=== PATIENT | female | born 1990 | race Caucasian/White ===

== ENCOUNTER 2017-09-26 02:20 | Emergency (ER) | payer OTHER ==
[~2017-09-26] VITALS: Ht 160 cm; Wt 63.5 kg
[2017-09-26 02:26] VITALS: BP 144/90
--- NOTE | 2017-09-26 02:32 | NUR ---
PATIENT AMBULATED TO BED 11
--- NOTE | 2017-09-26 02:35 | NUR ---
PT C/O TOOTHACHE TO LEFT SIDE OF JAW X3 DAYS. PT STATES PAIN IS 6/10 TO LEFT SIDE OF MOUTH, SHARP, NON RADIATING. PT STATES SHE BIT HER LIP, NO ACTIVE BLEEDING NOTED. NO SWELLING OR REDNESS NOTED TO LEFT SIDE OF FACE, AREA IS TENDER TO TOUCH. NO PMH, NKA
[2017-09-26 02:54] VITALS: BP 140/67
--- NOTE | 2017-09-26 02:54 | NUR ---
Patient discharged with v/s stable. Written and verbal after care instructions given and explained. Patient alert, oriented and verbalized understanding of instructions. Ambulatory with steady gait. All questions addressed prior to discharge. ID band removed. Patient advised to follow up with PMD. Rx of penicillin, motrin given. Patient educated on indication of medication including possible reaction and side effects. Opportunity to ask questions provided and answered.
== END 2017-09-26 02:54 | disposition home or self-care (01) ==
LOC: MED 02:20
DX: K04.7 Periapical abscess without sinus (principal); J45.909 Unspecified asthma, uncomplicated; F17.200 Nicotine dependence, unspecified, uncomplicated
CPT/HCPCS: 99283

== ENCOUNTER 2018-01-09 20:57 | Emergency (ER) | payer OTHER ==
[~2018-01-09] VITALS: Ht 160 cm; Wt 63.5 kg
--- NOTE | 2018-01-09 21:06 | NUR ---
Kayla alvarenga in ED - 01/09/18 at 2112 by [facility] PT.[email or web address] TO ER BED 10, REPORT GIVEN TO BANDAR CRAWFORD
[2018-01-09 21:08] VITALS: BP 133/95
--- NOTE | 2018-01-09 21:11 | NUR ---
27/F CAME IN W C/O SOB X 1 DAY. WHEEZING NOTED THROUGHOUT WITH SLIGHT ACCESSORY MUSCLE USE NOTED, ABLE TO SPEAK AT FULL LENGHT WITH NO DIFFICULTIES. 22RR, 99% ON RA. PT REPORTS SHE TOOK ALBUTEROL SEVERAL TIME TODAY WITH MINIMAL RELIEF
--- NOTE | 2018-01-09 21:13 | NUR ---
PT TAKEN TO BED 7
--- NOTE | 2018-01-09 21:13 | NUR ---
REPORT GIVEN TO BANDAR RIVAS
--- NOTE | 2018-01-09 21:18 | NUR ---
Dr. Henry evaluating patient at bedside.
[2018-01-09] MEDS ORDERED: predniSONE 20 MG TAB PO ONE (21:30)
[2018-01-09] MEDS ORDERED: ALBUTEROL SULFATE/IPRATROPIU 3 ML SOL IH ONE (21:30)
--- NOTE | 2018-01-09 21:54 | NUR ---
Respiratory Therapist at bedside for respiratory intervention.
--- NOTE | 2018-01-09 22:00 | NUR ---
BREATHIGN TREATMENT DONE, PT HANNY WELL, STATES " I FEEL BETTER". ALL LUNG SOUNDS CBTA 18RR EVEN AND UNLABORED, 99% RA.
[2018-01-09 22:05] VITALS: BP 132/85
--- NOTE | 2018-01-09 22:05 | NUR ---
Patient discharged with v/s stable. Written and verbal after care instructions given and explained. Patient alert, oriented and verbalized understanding of instructions. Ambulatory with steady gait. All questions addressed prior to discharge. ID band removed. Patient advised to follow up with PMD. Rx of COMBIVENT 103MCG HHN, PREDNISONE 50MG given. Patient educated on indication of medication including possible reaction and side effects. Opportunity to ask questions provided and answered.
== END 2018-01-09 22:05 | disposition home or self-care (01) ==
LOC: MED 20:57
DX: J45.901 Unspecified asthma with (acute) exacerbation (principal)
CPT/HCPCS: 94640; 94760; 99283; J7512; J7620

== ENCOUNTER 2019-11-11 21:51 | Emergency (ER) | payer MEDICAID, OTHER ==
[~2019-11-11] VITALS: Ht 160 cm; Wt 62.6 kg
[2019-11-11 21:56] VITALS: BP 139/75
[2019-11-11] MEDS ORDERED: KETOROLAC 30 MG/ML VIAL IVP ONE (22:15)
[2019-11-11] MEDS ORDERED: NACL 0.9% 1,000 ML IV ONE (22:15)
[2019-11-11 22:37] LABS: BASOPHILS % (AUTO) 0.4 % (0.0-2.0); EOSINOPHILS # (AUTO) 0.1 K/uL (0-0.4); EOSINOPHILS % (AUTO) 0.5 % (0.0-4.0); HEMOGLOBIN 12.7 g/dL (12.0-16.0); LYMPHOCYTES # (AUTO) 0.7 K/uL (2.5-16.5); LYMPHOCYTES % (AUTO) 6.6 % (20.5-51.1); MEAN CORPUSCULAR HEMOGLOBIN 28 pg (27-31); MEAN CORPUSCULAR HGB CONC 33 g/dL (33-37); MEAN CORPUSCULAR VOLUME 85.2 fL (80-94); MONOCYTES # (AUTO) 0.5 K/uL (0.8-1.0); MONOCYTES % (AUTO) 4.8 % (1.7-9.3); NEUTROPHILS # (AUTO) 9.6 K/uL (1.8-7.7); NEUTROPHILS % (AUTO) 87.7 % (42.2-75.2); PLATELET COUNT (AUTO) 163 K/uL (140-450); RED BLOOD CELL COUNT(AUTO) 4.46 MIL/uL (4.20-5.40); RED CELL DISTRIBUTION WIDTH 13.5 % (11.6-13.7)
[2019-11-11 22:40] LABS: APPEARANCE,URINE CLOUDY (CLEAR); BILIRUBIN,URINE NEGATIVE (NEGATIVE); BLOOD, URINE 3+ (NEGATIVE); COLOR,URINE YELLOW (YELLOW); LEUKOCYTE ESTERASE ,URINE 2+ (NEGATIVE); NITRITE, URINE POSITIVE (NEGATIVE); UGLUCOSE NEGATIVE (NEGATIVE)
[2019-11-11 22:51] LABS: HYALINE CASTS, URINE 0-10 /LPF (None Seen); RBC,URINE TOO NUMEROUS TO COUN /HPF (0-5); WBC,URINE TOO MANY TO COUNT /HPF (0-5)
[2019-11-11 22:52] LABS: ALBUMIN 3.5 g/dL (3.4-5.0); CARBON DIOXIDE 28.5 mmol/L (21-32); CREATININE 0.8 mg/dL (0.6-1.3); POTASSIUM 3.5 mmol/L (3.5-5.1); TOTAL BILIRUBIN 0.4 mg/dL (0.0-1.0)
[2019-11-11] MEDS ORDERED: cefTRIAXone 1,000 MG VIAL ONE (23:30)
[2019-11-11 23:50] VITALS: BP 139/75
== END 2019-11-11 23:50 | disposition home or self-care (01) ==
LOC: MED 21:51
DX: N39.0 Urinary tract infection, site not specified (principal); J45.909 Unspecified asthma, uncomplicated; Z91.013 Allergy to seafood
CPT/HCPCS: 36415; 74176; 80053; 81001; 81025; 85025; 87086; 87186; 96365; 96375; 99284; J0696; J1885; J7030

== ENCOUNTER 2019-12-05 21:50 | Emergency (ER) | payer SELFPAY ==
[~2019-12-05] VITALS: Ht 160 cm; Wt 64.5 kg
[2019-12-05 21:54] VITALS: BP 136/80
--- NOTE | 2019-12-05 21:57 | NUR ---
29 Y/O FEMALE PRESENTS TO THE ER WITH LEFT FLANK PAIN X 1 DAY. 03/28. DENIES DYSURIA, FREQUENCY, OR HEMATURIA. PT STATES PAIN RADIATES TO LLQ. DENIES INJURY, NAUSEA, VOMITING, DIARRHEA, BUT FEELS BLOATED. PT STATES SHE WAS SEEN HERE FOR THE SAME PROBLEM, BUT WAS RULED OUT A UTI. PT STATES SHE COMPLETED ANTIBIOTIC REGIMEN. DENIES COUGH, R/R EQUAL, AND UNLABORED. LMP 11/21/19 SIDE RAIL X1, WILL CONTINUE TO MONITOR NKDA PMH: ASTHMA
--- NOTE | 2019-12-05 21:59 | NUR ---
PT TAKEN TO BED 4
--- NOTE | 2019-12-05 22:06 | NUR ---
Dr. Henry examining patient.
[2019-12-05] MEDS ORDERED: KETOROLAC 60 MG/2 ML VIAL IM ONE (22:10)
--- NOTE | 2019-12-05 22:34 | NUR ---
PT RETURN FROM RAD
[2019-12-05 23:05] VITALS: BP 136/80
--- NOTE | 2019-12-05 23:05 | NUR ---
Patient discharged with v/s stable. Written and verbal after care instructions given and explained. Patient alert, oriented and verbalized understanding of instructions. Ambulatory with steady gait. All questions addressed prior to discharge. ID band removed. Patient advised to follow up with PMD. Rx of ROBAXIN; MOTRIN given. Patient educated on indication of medication including possible reaction and side effects. Opportunity to ask questions provided and answered.
== END 2019-12-05 23:05 | disposition home or self-care (01) ==
LOC: MED 21:50
DX: M54.42 Lumbago with sciatica, left side (principal); J45.909 Unspecified asthma, uncomplicated; Z91.013 Allergy to seafood
CPT/HCPCS: 72100; 81002; 81025; 96372; 99283; J1885

== ENCOUNTER 2020-04-24 04:41 | Emergency (ER) | payer MEDICAID ==
[~2020-04-24] VITALS: Ht 157.5 cm; Wt 72.6 kg
--- NOTE | 2020-04-24 04:43 | NUR ---
PT TAKEN TO BED 4
[2020-04-24 04:59] VITALS: BP 96/50
--- NOTE | 2020-04-24 04:59 | NUR ---
29 Y/O FEMALE PRESENTS TO ER WITH C/O PELVIC CRAMPING/VAGINAL BLEEDING X 5 HRS. 3/10 CONSTANT CRAMPING PELVIC PAIN. PT STATES SHE TOOK MISOPROSTOL PILL GIVEN TO HER FROM [facility] TODAY FOR ELECTIVE . PT STATES SHE TOOK LAST PILL AROUND 2253 AND 2 HRS LATER AND BEGAN TO START HAVING CRAMPS, CLOTS, AND HEAVY VAGINAL BLEEDING. PT CANT REMEMBER HER LMP. STATES SHE IS BLEEDING THROUGH 2 PADS IN A 30 MINUTE TIME FRAME. PT ALSO STATES SHE IS HAVING NAUSEA, AND CHILLS. DENIES VOMITING, DIARRHEA,HEADACHE, FEVER, COUGH, SOB. PT IS G-6;T-3;P-1;A-2;L-4. VSS, R/R EQUAL, AND UNLABORED. SIDE RAIL X1, BED IN LOW POSITION, WILL CONTINUE TO MONITOR. NKDA DENIES PMH
--- NOTE | 2020-04-24 05:02 | NUR ---
G4 T3 L4 Addendum: 04/24/20 at 0503 by [facility]RECTION--- 6
[2020-04-24] MEDS ORDERED: NACL 0.9% 1,000 ML IV ONE (05:05)
--- NOTE | 2020-04-24 05:28 | NUR ---
Dr. Clifford examining patient.
[2020-04-24 06:43] VITALS: BP 117/74
--- NOTE | 2020-04-24 06:43 | NUR ---
Patient discharged with v/s stable. Written and verbal after care instructions given and explained. Patient alert, oriented and verbalized understanding of instructions. Wheel Chair Assisted with to car. All questions addressed prior to discharge. ID band removed. Patient advised to follow up with PMD. Rx of CIPRO, PROVERA given. Patient educated on indication of medication including possible reaction and side effects. Opportunity to ask questions provided and answered.
== END 2020-04-24 06:43 | disposition home or self-care (01) ==
LOC: MED 04:41
DX: O03.9 Complete or unspecified spontaneous abortion without complication (principal); O23.41 Unspecified infection of urinary tract in pregnancy, first trimester; J45.909 Unspecified asthma, uncomplicated; Z98.890 Other specified postprocedural states; Z91.013 Allergy to seafood
CPT/HCPCS: 81002; 81025; 99283; J7030; 96360

== ENCOUNTER 2022-07-04 02:10 | Emergency (ER) | payer MEDICAID ==
[~2022-07-04] VITALS: Ht 160 cm; Wt 63.5 kg
[2022-07-04 02:23] VITALS: BP 92/56
--- NOTE | 2022-07-04 02:23 | NUR ---
TO BED AMBULATORY
[2022-07-04] MEDS ORDERED: ONDANSETRON 4 MG/2 ML VIAL IVP ONE (02:40)
[2022-07-04] MEDS ORDERED: NACL 0.9% 2,000 ML IV ONE (02:40)
[2022-07-04] MEDS ORDERED: KETOROLAC 15 MG/ML VIAL IVP ONE (02:40)
[2022-07-04 02:54] LABS: BASOPHILS % (AUTO) 0.2 % (0.0-2.0); EOSINOPHILS # (AUTO) 0.1 K/uL (0-0.4); EOSINOPHILS % (AUTO) 0.9 % (0.0-4.0); HEMATOCRIT 33.6 % (36-48); LYMPHOCYTES # (AUTO) 0.5 K/uL (2.5-16.5); LYMPHOCYTES % (AUTO) 4.3 % (20.5-51.1); MEAN CORPUSCULAR HEMOGLOBIN 26 pg (27-31); MEAN CORPUSCULAR HGB CONC 33 g/dL (33-37); MEAN CORPUSCULAR VOLUME 79.4 fL (80-94); MONOCYTES # (AUTO) 0.2 K/uL (0.8-1.0); MONOCYTES % (AUTO) 1.4 % (1.7-9.3); NEUTROPHILS # (AUTO) 10.8 K/uL (1.8-7.7); NEUTROPHILS % (AUTO) 93.2 % (42.2-75.2); PLATELET COUNT (AUTO) 246 K/uL (140-450); RED BLOOD CELL COUNT(AUTO) 4.23 MIL/uL (4.20-5.40); RED CELL DISTRIBUTION WIDTH 16.1 % (11.6-13.7); WHITE BLOOD COUNT (AUTO) 11.6 K/uL (4.8-10.8)
[2022-07-04 03:05] VITALS: BP 101/56
[2022-07-04 03:11] LABS: ALBUMIN 1.9 g/dL (3.4-5.0); ANION GAP 17.6 (8-16); CARBON DIOXIDE 21.9 mmol/L (21-32); CREATININE 1.3 mg/dL (0.6-1.3); POTASSIUM 3.5 mmol/L (3.5-5.1); TOTAL BILIRUBIN 0.8 mg/dL (0.0-1.0)
--- NOTE | 2022-07-04 03:15 | NUR ---
IV INFILTRATED. WARM COMPRESS TO RAC. NO REDNESS NOTED. MINIMAL SWELLING. DR. HAYDEN AWARE. WILL WAIT FOR RESULTS PRIOR TO DECISION OF RESTARTING IV. PT REPORTS IMPROVEMENT IN PAIN. 10/26. WILL CONTINUE TO MONITOR.
[2022-07-04 04:05] LABS: APPEARANCE,URINE CLEAR (CLEAR); BILIRUBIN,URINE 1+ (NEGATIVE); BLOOD, URINE NEGATIVE (NEGATIVE); COLOR,URINE YELLOW (YELLOW); LEUKOCYTE ESTERASE ,URINE NEGATIVE (NEGATIVE); NITRITE, URINE NEGATIVE (NEGATIVE); PH,URINE 5.5 (5.0-9.0); UGLUCOSE NEGATIVE (NEGATIVE)
[2022-07-04] MEDS ORDERED: ACETAMINOPHEN EXTRA STRENGTH 500 MG TAB PO ONE (05:10)
[2022-07-04] MEDS ORDERED: ACETAMINOPHEN EXTRA STRENGTH 500 MG TAB ONE (05:12)
[2022-07-04] MEDS ORDERED: CEPH-588 PO (05:24)
[2022-07-04] MEDS ORDERED: cephALEXin 500 MG CAP PO ONE (05:25)
== END 2022-07-04 03:05 | disposition home or self-care (01) ==
LOC: MED 02:10
DX: O23.01 Infections of kidney in pregnancy, first trimester (principal); Z20.822 Contact with and (suspected) exposure to COVID-19; N12 Tubulo-interstitial nephritis, not specified as acute or chronic; O02.81 Inappropriate change in quantitative human chorionic gonadotropin (hCG) in early pregnancy; J45.909 Unspecified asthma, uncomplicated; Z79.899 Other long term (current) drug therapy; Z91.013 Allergy to seafood; Z3A.01 Less than 8 weeks gestation of pregnancy
CPT/HCPCS: 36415; 76817; 80053; 81003; 81025; 84702; 85025; 87086; 87426; 87804; 96374; 96375; 99284; J1885; J2405; J7030; Q0092